=== PATIENT | male | born 1945 | race Caucasian/White ===

== ENCOUNTER 2016-10-04 08:46 | Emergency (ER) | payer MEDICARE, BC ==
[2016-10-04 08:52] VITALS: BP 124/90
[2016-10-04] MEDS ORDERED: Indomethacin CAP* 25 MG CAP PO ONE (09:19)
--- NOTE | 2016-10-04 10:45 | UC ---
Lesly Aguirre Rebecca, scribed for Huey Maldonado MD on 10/04/16 at 0905 . Lower Extremity/Ankle HPI - HPI Summary HPI Summary: Pt is a 71 y/o M who presents to [facility] c/o R great toe swelling and pain. Sx began yesterday afternoon and have been constant since onset. Notes that his toe nail was digging into the toe, which he clipped yesterday. Pain is currently severe, ranked 8/10 and characterized as an ache. Treated with a hot soak last night. Sx aggravated by palpation, alleviated by nothing. Additionally notes R ankle swelling s/p "twisting" last week. PMHx gout in 1973. - History of Current Complaint Chief Complaint: UCLowerExtremity Stated Complaint: SWOLLEN BIG TOE Time Seen by Provider: 10/04/16 09:04 Hx Obtained From: Patient Onset/Duration: Lasting Days - started yesterday, Still Present Severity Currently: Severe Pain Intensity: 8 Pain Scale Used: 0-10 Numeric Aggravating Factor(s): Other - Palpation Alleviating Factor(s): Nothing Able to Bear Weight: Yes - Allergies/Home Medications Allergies/Adverse Reactions: Allergies Allergy/AdvReac Type Severity Reaction Status Date / Time No Known Allergies Allergy Verified 10/04/16 08:52 Home Medications: Home Medications Atorvastatin* [Lipitor*] 10 mg PO 1700 10/04/16 [History Confirmed 10/04/16] PMH/Surg Hx/FS Hx/Imm Hx - Additional Past Medical History Additional PMH: PMHx Gout Endocrine History: Dyslipidemia - HLD GI/ History: Kidney Stones - Surgical History Surgical History: Yes Surgery Procedure, Year, and Place: prostate removal 2003 - Family History Known Family History: Negative: Diabetes - Social History Alcohol Use: Occasionally Substance Use Type: None Smoking Status (MU): Never Smoked Tobacco Review of Systems Constitutional: Negative Skin: Negative Eyes: Negative ENT: Negative Respiratory: Negative Cardiovascular: Negative Gastrointestinal: Negative Genitourinary: Negative Motor: Negative Neurovascular: Negative Musculoskeletal: Other: - R great toe pain and swelling, R ankle pain s/p twisting last week Neurological: Negative Psychological: Negative All Other Systems Reviewed And Are Negative: Yes Physical Exam Triage Information Reviewed: Yes Vital Signs: Initial Vital Signs Temp 98.1 F 10/04/16 08:48 Pulse 99 10/04/16 08:48 Resp 20 10/04/16 08:48 BP 124/90 10/04/16 08:48 Pulse Ox 98 10/04/16 08:48 Vital Signs Reviewed: Yes - Additional Comments The patient is well-nourished in no acute distress and in no acute pain. The skin is warm and dry and skin color reflects adequate perfusion. Neck is supple with full range of motion and non-tender. There are no carotid bruits. There is no neck vein distension. Respiratory: Chest is non-tender. Lungs are clear to auscultation and breath sounds are symmetrical and equal. Cardiovascular: Hear is regular rate and rhythm. There is no murmur or rub auscultated. There is no peripheral edema and pulses are symmetrical and equal. Musculoskeletal: There is no back pain noted. Extremities have full range of motion. There is good capillary refill. There is no peripheral edema or calf tenderness elicited. The right knee is nontender. There is pain on his R ankle with no swelling and no medial or lateral collateral laxity of the ankle. His foot has right great toe tenderness over the IP joint. There is some swelling and it is not red or hot. He also has swelling around his nail in the periungual area. No evidence of abscess or soft tissue that can eb incised. He has got swelling on the tip of his R great toe as well. He has a callous on the medial aspect of his distal great toe. NO lymphadenopathy notes. No lymphangitis noted. Neurological: Patient is alert and oriented to person, place and time. Psychiatric: The patient has an appropriate affect and does not exhibit any anxiety or depression. Lower Extremity Course/Dx - Course Course Of Treatment: Pt is a 71 y/o M who presents to [facility] c/o R great toe swelling and pain since yesterday afternoon. Notes that his toe nail was digging into the toe, which he clipped yesterday. Pain is currently severe, ranked 8/10 and characterized as an ache. Treated with a hot soak last night. Sx aggravated by palpation. Additionally notes R ankle swelling s/p "twisting" last week. PMHx gout in 1973. THe physical examination reveals: There is pain on his R ankle with no swelling and no medial or lateral collateral laxity of the ankle. His foot has right great toe tenderness over the IP joint. There is some swelling and it is not red or hot. He also has swelling around his nail in the periungual area. No evidence of abscess or soft tissue that can eb incised. He has got swelling on the tip of his R great toe as well. He has a callous on the medial aspect of his distal great toe. No lymphadenopathy notes. No lymphangitis noted. This could represent a gouty arthritis or more probable, an ingrown toenail/cellulitis. We will start the pt on Keflex 500 mg 4x a day, Colcrys and Indocin. Will draw a uric acid, CBC and sed rate and have him f/u with his PCP. He will be D/C to home with Dx of infection of the R great toe and gouty arthritis. He understands and agrees. Patient medications reviewed this visit. Elevated BP noted and advised to f/u with his PCP in 1-2 days. - Differential Dx/Diagnosis Differential Diagnosis/HQI/PQRI: Cellulitis, Gout Provider Diagnoses: Infection of the R great toe. Gouty arthritis. Discharge - Discharge Plan Condition: Stable Disposition: HOME Prescriptions: Cephalexin CAP* [Keflex CAP*] 500 mg PO QID #28 cap Colchicine* [Colcrys*] 0.6 mg PO DAILY #3 tab Indomethacin CAP* [Indocin CAP*] 50 mg PO TID PRN #20 cap PRN Reason: Pain Patient Education Materials: Gout (ED) Referrals: Hillary Villatoro [Primary Care Provider] - 2 Days (Follow up with your primary care physician in 1-2 days. ) Additional Instructions: Watch for a red streak up the leg. The documentation as recorded by the Lesly son Rebecca accurately reflects the service I personally performed and the decisions made by me, Huey Maldonado MD.
[2016-10-04 12:50] LABS: Hematocrit 43 % (42-52); Hemoglobin 14.2 g/dl (14.0-18.0); Mean Corpuscular HGB Conc 33 g/dl (31-36); Mean Corpuscular Hemoglobin 31 pg (27-31); Mean Corpuscular Volume 94 fL (80-94); Mean Platelet Volume 8 um3 (7.4-10.4); Red Blood Count 4.58 10^6/ul (4.0-5.4); Red Cell Distribution Width 13 % (10.5-15); White Blood Count 8.3 10^3/ul (3.5-10.8)
[2016-10-04 13:11] LABS: Calcium 9.2 mg/dL (8.6-10.3); EGFR African American 110.4 (>60); EGFR Non-African American 85.9 (>60); Globulin 2.9 g/dL (2-4); Potassium 4.2 mmol/L (3.5-5.0); Total Bilirubin 0.5 mg/dL (0.2-1.0); Total Protein 6.9 g/dL (6.4-8.9); Uric Acid 5.1 mg/dL (4.4-7.6)
[2016-10-04 13:40] LABS: Erythrocyte Sed Rate 29 mm/Hr (0-40)
== END 2016-10-04 09:46 | disposition home or self-care (01) ==
LOC: UCEAST 08:46
DX: M10.071 Idiopathic gout, right ankle and foot (principal); L08.9 Local infection of the skin and subcutaneous tissue, unspecified; E78.5 Hyperlipidemia, unspecified; Z87.442 Personal history of urinary calculi; Z90.79 Acquired absence of other genital organ(s)
CPT/HCPCS: 36415; 80053; 84550; 85025; 85652; 99212; A9270-GY; G0463

== ENCOUNTER 2018-04-23 11:56 | Day surgery (SDC) | payer MEDICARE ==
[~2018-04-23 11:56] MED LIST: Acetaminophen TAB* 325 MG PO PRN; Buffered Lidocaine 1% SYRIN* 1 ML/SYRINGE INTRADERM ONE
[2018-04-23] MEDS ORDERED: Lidocaine 2% EPI 1:200000 MPF*10-20 ML VIAL ONE (13:53)
[2018-04-23] MEDS ORDERED: Lidocaine 1%* 5 ML VIAL ONE (13:53)
[2018-04-23] MEDS ORDERED: Cyclopentolate 1% OPTH.SOL* 2 ML BTL ONE (13:53)
[2018-04-23] MEDS ORDERED: Proparacaine 0.5% OPHTH.SOL* 15 ML BTL ONE (13:53)
[2018-04-23] MEDS ORDERED: acetaZOLAMIDE TAB* 250 MG ONE (13:53)
[2018-04-23] MEDS ORDERED: Povidone Iodine 5% OPTH* 30 ML BTL ONE (13:53)
[2018-04-23] MEDS ORDERED: Phenylephrine 2.5% OPTH.SOL* 2 ML BTL ONE (13:53)
[2018-04-23] MEDS ORDERED: Ketorolac 0.5% OPHTH (NF) 0.5 % 5 ML BTL ONE (13:53)
[2018-04-23] MEDS ORDERED: Neomycin/Polymy/Dex OPTH.SUSP* MAXITROL 0.1% 5 ML ONE (13:53)
[2018-04-23] MEDS ORDERED: Midazolam* 1 MG/ML 2 ML VIAL (2 MG) ONE (14:27)
[2018-04-23 15:19] VITALS: BP 116/72
--- NOTE | 2018-04-23 16:08 | OP ---
OPERATIVE NOTE: DATE OF OPERATION: 04/23/18 DATE OF : 49 SURGEON: Ameya Matthews M.D. PREOPERATIVE DIAGNOSIS: Cataract, right eye. POSTOPERATIVE DIAGNOSIS: Cataract, right eye. OPERATIVE PROCEDURE: Extracapsular cataract extraction with intraocular lens implant right eye. PROCEDURE: The patient was brought to the operating room after being given 1/2% Alcaine with epineph rine drops in the preoperative area. The eye was prepped and draped in the usual sterile fashion. S terile drape and eyelid speculum were placed. Again, topical 1/2% Alcaine with epinephrine was given . A paracentesis incision was made at the 9 o'clock position with the No.75 blade. Clear cornea inc ision 2.2 x 2.2-mm was created at the 12 o'clock position starting at the anterior limbus using the 2 .2-mm keratome. The anterior chamber was irrigated with 0.4 mL of 1% non-preservative intracameral l idocaine and filled with DisCoVisc. A capsulorrhexis was completed using the cystotome and the Utrat a forceps. Hydrodissection was performed with balanced salt solution. The lens nucleus was removed w ith the Phacoemulsification handpiece without incident. Cortex was removed with the irrigation-aspir ation handpiece. The capsular bag was re-inflated using DisCoVisc and an [id number] implant was inser kalina with the shooter. The irrigation-aspiration handpiece was used to remove all residual DisCoVisc. The eye was refilled with balanced salt solution and the wound checked and found to be watertight. Topical Maxitrol drops were given. [id number]/[facility] #: [id number]
== END 2018-04-23 14:58 | disposition home or self-care (01) ==
LOC: OREAST 11:56
PROVIDERS: ATTEND Specialist
DX: H25.811 Combined forms of age-related cataract, right eye (principal); Z87.891 Personal history of nicotine dependence; Z85.46 Personal history of malignant neoplasm of prostate
CPT/HCPCS: A9270-GY; J2250; V2632